=== PATIENT | male | born 1995 | race Caucasian/White ===

== ENCOUNTER 2018-04-02 10:17 | Emergency (ER) | payer OTHER ==
--- NOTE | 2018-04-02 10:41 | EDPHY ---
H & P Stated Complaint: Back pain, neck pain since last night. Sent by PCP to R/O meningitis. Time Seen by Provider: 04/02/18 10:40 HPI/ROS: HPI: This is a 23-year-old male who presents with Chief Complaint: Back pain, neck pain since last night. Sent by PCP to R/O meningitis. Location: Body Quality: Aches Duration: Since last night Signs and Symptoms: no fever, no nausea, no vomiting, no diarrhea, no urinary symptoms, no chest pain, no shortness of breath, no wheezing, no cough, no sore throat, no neck stiffness, no joint pain, no swollen glands, no ear pain, no rash, +bitemporal headache Timing: Acute, constant, rapid onset Severity: Moderate Context: Patient reports that yesterday evening he started to developed lower greater than midback pain accompanied by body aches and fatigue. He started to developed at by temporal headache that is nonradiating in nature and is described as dull and aching. He denies any thunderclap symptoms or worse headache of his life. Patient did not receive influenza vaccine this year. He also complains of muscle cramps in his thighs and arms. Denies any vision changes, neck stiffness, sore throat, swollen glands. Patient also complains decreased appetite. Modifying Factors: None Comment: ROS: A comprehensive 10 system review of systems is otherwise negative aside from elements mentioned in the history of present illness. MEDICAL/SURGICAL/SOCIAL HISTORY: Medical history: [place] sarcoma. Surgical history: Denies Social history: Never smoked. Family history noncontributory. CONSTITUTIONAL: Ill but nontoxic-appearing young adult white male, awake and alert, no obvious distress HEENT: Atraumatic and normocephalic, PERRL, EOMI. Nares patent; no rhinorrhea; no nasal mucosal edema. Tympanic membranes clear. Oropharynx clear, no exudate and moist pink mucosa. Airway patent. No lymphadenopathy. No meningismus. Cardiovascular: Normal S1/S2, tachycardia, regular rhythm, without murmur rub or gallop. PULMONARY/CHEST: Symmetrical and nontender. Clear to auscultation bilaterally. Good air movement. No accessory muscle usage. ABDOMEN: Soft, nondistended, nontender, no rebound, no guarding, no peritoneal signs, no masses or organomegaly. No CVAT. EXTREMITIES: 2/2 pulses, strength 5/5, no deformities, no clubbing, no cyanosis or edema. NEUROLOGICAL: no focal neuro deficits. GCS 15. SKIN: Warm and dry, no erythema. no rash. Good capillary refill. Source: Patient Exam Limitations: No limitations - Personal History Current Tetanus Diphtheria and Acellular Pertussis (TDAP): No - Medical/Surgical History Hx Asthma: No Hx Chronic Respiratory Disease: No Hx Diabetes: No Hx Cardiac Disease: No Hx Renal Disease: No Hx Cirrhosis: No Hx Alcoholism: No Hx HIV/AIDS: No Hx Splenectomy or Spleen Trauma: No Other PMH: Ewings sarcoma. - Social History Smoking Status: Never smoked Constitutional: Initial Vital Signs Temperature (C) 36.7 C 04/02/18 10:22 Heart Rate 100 04/02/18 10:22 Respiratory Rate 16 04/02/18 10:22 Blood Pressure 140/92 H 04/02/18 10:22 O2 Sat (%) 97 04/02/18 10:22 O2 Delivery Mode Room Air Allergies/Adverse Reactions: povidone-iodine [From Betadine] Allergy (Verified 04/02/18 10:25) soap [From Betadine] Allergy (Verified 04/02/18 10:25) Home Medications: Medication Instructions Recorded Ondansetron Odt [Zofran Odt 4 mg 4 mg PO Q4 PRN #12 tab 04/02/18 (*)] oxyCODONE/APAP 5/325 [Percocet 1 - 2 tab PO Q4H PRN #12 tab 04/02/18 5/325 (*)] Medical Decision Making ED Course/Re-evaluation: Vital signs reviewed and show mild tachycardia but no fever Patient does not have any meningismus signs. No indication for LP at this time. IV access and laboratory studies along with flu swab and a mono test ordered Patient given 2 L normal saline, IV Decadron 10 mg, IV promethazine 12.5 mg, IV Toradol 30 mg 1118: Laboratory studies reviewed. No signs of leukocytosis/anemia/platelet dysfunction/EBONY/elevated LFTs/electrolyte imbalance. 1150: Negative influenza and mono. 1154: Reassessed patient who reports 28% improvement in symptoms. Discussed lumbar puncture again and patient politely refuses and wishes to go home with supportive care with close follow-up or return if worsening of symptoms. This patient was seen under the supervision of my secondary supervising physician. I evaluated care for this patient independently. Discussed this patient with Dr. Rogers who did not see the patient. Differential Diagnosis: Adult fever including but not limited to viral syndromes including influenza, urinary tract infection, pneumonia and sepsis. - Data Points Laboratory Results: Laboratory Results 04/02/18 10:45 04/02/18 10:45 04/02/18 04/02/18 04/02/18 10:45 10:45 10:45 WBC RBC Hgb Hct MCV MCH MCHC RDW Plt Count MPV Neut % (Auto) Lymph % (Auto) Hill % (Auto) Eos % (Auto) Baso % (Auto) Nucleat RBC Rel Count Absolute Neuts (auto) Absolute Lymphs (auto) Absolute Monos (auto) Absolute Eos (auto) Absolute Basos (auto) Absolute Nucleated RBC Immature Gran % Immature Gran # Sodium 138 mEq/L mEq/L (135-145) Potassium 4.5 mEq/L mEq/L (3.5-5.2) Chloride 104 mEq/L mEq/L (97-110) Carbon Dioxide 24 mEq/l mEq/l (22-31) Anion Gap 10 mEq/L mEq/L (6-14) BUN 19 mg/dL mg/dL (7-23) Creatinine 1.1 mg/dL mg/dL (0.7-1.3) Estimated GFR > 60 Glucose 98 mg/dL mg/dL (70-100) Calcium 9.6 mg/dL mg/dL (8.5-10.4) Total Bilirubin 0.7 mg/dL mg/dL (0.1-1.4) Conjugated Bilirubin 0.3 mg/dL mg/dL (0.0-0.5) Unconjugated Bilirubin 0.4 mg/dL mg/dL (0.0-1.1) AST 51 IU/L IU/L (17-59) ALT 117 IU/L H IU/L (21-72) Alkaline Phosphatase 59 IU/L IU/L (38-126) Creatine Kinase 159 IU/L IU/L (0-224) Total Protein 7.9 g/dL g/dL (6.3-8.2) Albumin 5.0 g/dL g/dL (3.5-5.0) Nasal Influenza A PCR NEGATIVE FOR FLU A (NEGATIVE) Nasal Influenza B PCR NEGATIVE FOR FLU B (NEGATIVE) Monoscreen NEGATIVE (NEGATIVE) 04/02/18 10:45 WBC 4.25 10^3/uL 10^3/uL (3.80-9.50) RBC 5.31 10^6/uL 10^6/uL (4.40-6.38) Hgb 16.6 g/dL g/dL (13.7-17.5) Hct 48.5 % % (40.0-51.0) MCV 91.3 fL fL (81.5-99.8) MCH 31.3 pg pg (27.9-34.1) MCHC 34.2 g/dL g/dL (32.4-36.7) RDW 12.2 % % (11.5-15.2) Plt Count 180 10^3/uL 10^3/uL (150-400) MPV 9.4 fL fL (8.7-11.7) Neut % (Auto) 69.0 % % (39.3-74.2) Lymph % (Auto) 15.8 % % (15.0-45.0) Hill % (Auto) 14.1 % H % (4.5-13.0) Eos % (Auto) 0.2 % L % (0.6-7.6) Baso % (Auto) 0.7 % % (0.3-1.7) Nucleat RBC Rel Count 0.0 % % (0.0-0.2) Absolute Neuts (auto) 2.93 10^3/uL 10^3/uL (1.70-6.50) Absolute Lymphs (auto) 0.67 10^3/uL L 10^3/uL (1.00-3.00) Absolute Monos (auto) 0.60 10^3/uL 10^3/uL (0.30-0.80) Absolute Eos (auto) 0.01 10^3/uL L 10^3/uL (0.03-0.40) Absolute Basos (auto) 0.03 10^3/uL 10^3/uL (0.02-0.10) Absolute Nucleated RBC 0.00 10^3/uL 10^3/uL (0-0.01) Immature Gran % 0.2 % % (0.0-1.1) Immature Gran # 0.01 10^3/uL 10^3/uL (0.00-0.10) Sodium Potassium Chloride Carbon Dioxide Anion Gap BUN Creatinine Estimated GFR Glucose Calcium Total Bilirubin Conjugated Bilirubin Unconjugated Bilirubin AST ALT Alkaline Phosphatase Creatine Kinase Total Protein Albumin Nasal Influenza A PCR Nasal Influenza B PCR Monoscreen Medications Given: Discontinued Medications Dexamethasone (Decadron Injection) 10 mg IVP EDNOW ONE Stop: 04/02/18 10:45 Last Admin: 04/02/18 11:00 Dose: 10 mg Sodium Chloride (Ns) 1,000 mls @ 0 mls/hr IV ONCE ONE; Wide Open PRN Reason: Protocol Stop: 04/02/18 10:44 Last Admin: 04/02/18 10:59 Dose: 1,000 mls Sodium Chloride (Ns) 1,000 mls @ 0 mls/hr IV ONCE ONE; Wide Open PRN Reason: Protocol Stop: 04/02/18 10:44 Last Admin: 04/02/18 11:00 Dose: 1,000 mls Ketorolac Tromethamine (Toradol) 30 mg IVP EDNOW ONE Stop: 04/02/18 10:45 Last Admin: 04/02/18 11:00 Dose: 30 mg Promethazine HCl (Phenergan) 12.5 mg IVP ONCE ONE Stop: 04/02/18 10:56 Last Admin: 04/02/18 11:02 Dose: Not Given Departure - Departure Disposition: Home, Routine, Self-Care Clinical Impression: Viral syndrome Condition: Good Instructions: Viral Syndrome (ED) Additional Instructions: Consume a minimum of 8-10 glasses of water or electrolyte fluid replacement drinks that include Gatorade, Powerade, Pedialyte. Eat a bland diet for the next 48 hours and then slowly advance as tolerated. Take Zofran 1 tab every 4 hours as needed for nausea, vomiting. Take Tylenol 650 mg every 4 hours and/or Ibuprofen 600 mg every 8 hours with food as needed for pain. Use Percocet every 6 hours as needed for severe/break through pain. Do not use Tylenol and Percocet concomitantly. Follow-up with primary care provider in the next 1-2 days. Return to the Emergency Room if symptoms do not resolve in the next 48-72 hours , you spike a fever > 102 F, or experience intractable headache/nausea/ vomiting. Referrals: Desirae Dolan PA [Primary Care Provider] - 1-2 days without fail Stand Alone Forms: Work Excuse Prescriptions: Ondansetron Odt [Zofran Odt 4 mg (*)] 4 mg PO Q4 PRN #12 tab PRN Reason: Nausea/Vomiting, Use 1st oxyCODONE/APAP 5/325 [Percocet 5/325 (*)] 1 - 2 tab PO Q4H PRN #12 tab PRN Reason: Pain, Severe
[2018-04-02] MEDS ORDERED: NS 1,000 ML IV ONE ×2 (10:43)
[2018-04-02] MEDS ORDERED: DEXAMETHASONE 10 MG/ML VIAL IVP ONE (10:44)
[2018-04-02] MEDS ORDERED: KETOROLAC 30 MG/1 ML SDV IVP ONE (10:44)
[2018-04-02] MEDS ORDERED: PROMETHAZINE HCL 25 MG/ML INJ IVP ONE (10:55)
[2018-04-02] MEDS ORDERED: DEXAMETHASONE 4 MG/ML VIAL ONE (10:56)
[2018-04-02 11:13] LABS: PLATELET COUNT 180 10^3/uL (150-400)
[2018-04-02 11:21] LABS: CREATINE KINASE 159 IU/L (0-224)
[2018-04-02 12:59] VITALS: BP 119/73
== END 2018-04-02 12:57 | disposition home or self-care (01) ==
DX: B34.9 Viral infection, unspecified (principal); E86.9 Volume depletion, unspecified; M54.9 Dorsalgia, unspecified; M79.10 Myalgia, unspecified site
CPT/HCPCS: 96374; J1100; J1885